=== PATIENT | male | born 1945 | race Caucasian/White ===

== ENCOUNTER 2018-01-21 07:58 | Day surgery (SDC) | payer OTHER ==
[2018-01-16 09:21] VITALS: BMI 23.7
[2018-01-21] MEDS ORDERED: Bupivacaine HCl 0.5% PF (30 ml) Inj ONE (10:55)
[2018-01-21] MEDS ORDERED: ceFAZolin IV 1 gm in Dextrose 1 GM/50 ML BAG IVPB ONE (10:56)
[2018-01-21] MEDS ORDERED: ceFAZolin 1 gm in NS 1 GM/100 ML BAG IVPB ONE (11:19)
[2018-01-21] MEDS ORDERED: Midazolam 2 MG/2 ML VIAL ONE (11:27)
[2018-01-21] MEDS ORDERED: Propofol 10 mg/ml Inj (20 ML) ONE (11:27)
[2018-01-21] MEDS ORDERED: levETIRAcetam 1,000 MG in Sodium Chloride 0.9% 100 ML IVPB SCH (12:00)
[2018-01-21] MEDS ORDERED: Rocuronium 10 mg/ml (5 ml) ONE (12:17)
[2018-01-21] MEDS ORDERED: Succinylcholine Chloride 20 mg/ml Syr (5 ml) IV ONE (12:17)
[2018-01-21] MEDS ORDERED: HYDROmorphone 0.5 mg/0.5 ml ISec IVP PRN (12:18)
[2018-01-21] MEDS ORDERED: Oxycodone/Acetaminophen 5/325 mg Tab PO PRN (12:23)
[2018-01-21] MEDS ORDERED: Lactated Ringer's 1,000 ML IV SCH (12:30)
[2018-01-21 14:29] VITALS: RESP 18; TEMP 98
[2018-01-21 14:50] VITALS: BP 103/69; PULSE 59; O2SAT 100
--- NOTE | 2018-01-22 00:21 | OP ---
PROCEDURE DATE: 01/21/2018 PREOPERATIVE DIAGNOSIS: Incarcerated right inguinal hernia. POSTOPERATIVE DIAGNOSIS: Incarcerated pantaloon (direct and indirect) right inguinal hernia and large cord lipoma. PROCEDURE PERFORMED: Repair of incarcerated right inguinal hernia with excision of large cord lipoma. SURGEON: Paul Duque MD ANESTHESIA: General. BLOOD LOSS: 30 mL. POSTOPERATIVE CONDITION: Stable. INDICATIONS FOR SURGERY: This is a 72-year-old male, presents with a painful partially incarcerated right inguinal hernia for elective repair. GROSS FINDINGS: There were both direct and indirect hernias noted. Both were partially incarcerated; however, they were small in size. The indirect hernia was fixed with a high ligation, and the direct hernia was fixed with a direct closure. There was a 5-cm cord lipoma which was carefully excised from the area to facilitate healing. DESCRIPTION OF THE PROCEDURE: The patient was taken to the operating room. General anesthesia was administered. The right groin was prepped and draped. A standard right inguinal incision was made, and the external oblique aponeurosis was opened exposing the spermatic cord. The spermatic cord was looped with a Aurora drain, and small indirect hernia was found. It was dissected free, reduced and high ligation of sac was carried out by a simple ligation with a silk suture. Attention was then turned to the direct hernia which was dissected free and inverted. Because there was a small neck, I felt it was easy to repair this primarily. So, primary repair was accomplished with interrupted 2-0 Prolene. There was a large pelvic lipoma, measuring 5 cm associated with the hernia which was carefully dissected free and removed in order to avoid vascular compromise. The wound was then irrigated with saline and closed in layers with Monocryl, subcuticular Monocryl and skin clips. The patient tolerated the procedure well, returned to recovery room in stable condition. Paul Duque MD
== END 2018-01-21 15:20 | disposition home or self-care (01) ==
LOC: C.SDS 07:58
PROVIDERS: ATTEND Surgery
DX: K40.30 Unilateral inguinal hernia, with obstruction, without gangrene, not specified as recurrent (principal); D17.6 Benign lipomatous neoplasm of spermatic cord
CPT/HCPCS: 49507; 55520; 88304; J0690; J1170; J2001; J2250; J2704; J3010